=== PATIENT | male | born 1970 | race Caucasian/White ===

== ENCOUNTER → 2018-11-10 | Emergency (ER) | payer MEDICAID, OTHER ==
[~2018-11-10] VITALS: Ht 172.7 cm; Wt 70.0 kg
[~2018-11-10] MED LIST: CLIN300C10 PO; HYDROCODONE/APAP (10/325) TAB PO ONE; IBUP-1542 PO; SULF1TAB31 PO
[2018-11-10 07:27] VITALS: BP 144/79; PULSE 90; RESP 18; Ht 172.7 cm; Wt 70.0 kg
== END | disposition home or self-care (01) ==
LOC: FTE 07:22
DX: L03.116 Cellulitis of left lower limb (principal); M70.52 Other bursitis of knee, left knee; Y93.89 Activity, other specified
CPT/HCPCS: 73562; 93971; Z7610